=== PATIENT | male | born 1960 | race Caucasian/White ===

== ENCOUNTER 2018-03-14 15:10 | Emergency (ER) | payer SELFPAY ==
[~2018-03-14] VITALS: Ht 162.6 cm; Wt 96.8 kg
[2018-03-14 15:14] VITALS: BP 125/78
--- NOTE | 2018-03-14 15:15 | NUR ---
PT AMBULATES TO BED 2
--- NOTE | 2018-03-14 15:16 | NUR ---
REPORT GIVEN TO IVY SOTO
--- NOTE | 2018-03-14 15:20 | NUR ---
PATIENT PRESENTS TO ED WITH OPEN LACERATION TO RIGHT THUMB. PATIENT STATES HE CUT HIS HAND ON A PIECE OF GLASS. CAP REFILL ON RIGHT THUMB <3 SEC. PATIENT APPEARS TO HAVE SOME INK OVER CUT THAT HE REPORTS IS FOR CUTS AND WOUNDS. DENIES N/V/D; SKIN IS PINK/WARM/DRY; AAOX4 WITH EVEN AND STEADY GAIT; LUNGS CLEAR BL; HR EVEN AND REGULAR; PT DENIES ANY FEVER, CP, SOB, OR COUGH AT THIS TIME; PATIENT STATES PAIN OF 2/10 AT THIS TIME; VSS; PATIENT SITTING ON CHAIR. ER MD MADE AWARE OF PT STATUS.
--- NOTE | 2018-03-14 16:30 | NUR ---
Patient appears to be resting comfortably in bed. Vital Signs within normal limits. Respirations even and unlabored.
--- NOTE | 2018-03-14 16:40 | NUR ---
DR. SEAY AT BEDSIDE
[2018-03-14] MEDS ORDERED: cefTRIAXone 1,000 MG in LIDOCAINE 1% ***ER ONLY *** 2.1 ML IM ONE (16:45)
[2018-03-14] MEDS ORDERED: HYDROcodone/APAP 5/325 MG 1 TAB TAB PO ONE (16:45)
[2018-03-14] MEDS ORDERED: LIDOCAINE 1% 500 MG/50 ML VIAL INJ ONE (16:45)
[2018-03-14] MEDS ORDERED: NEOMYCIN/POLYMYXIN/BACITRACIN 0.9 GM/1 PKT TP ONE (16:45)
[2018-03-14] MEDS ORDERED: cefTRIAXone 1,000 MG VIAL ONE (16:55)
--- NOTE | 2018-03-14 17:50 | NUR ---
Patient appears to be resting comfortably in bed. Vital Signs within normal limits. Respirations even and unlabored.
--- NOTE | 2018-03-14 19:21 | NUR ---
Pt report given to [facility]. Transfer of care at this time.
--- NOTE | 2018-03-14 19:28 | NUR ---
Patient discharged with v/s stable. Written and verbal after care instructions given and explained. Patient alert, oriented and verbalized understanding of instructions. Ambulatory with steady gait. All questions addressed prior to discharge. ID band removed. Patient advised to follow up with PMD. Rx of KEFLEX 500 MG, MOTRIN 800 MG given. Patient educated on indication of medication including possible reaction and side effects. Opportunity to ask questions provided and answered.
[2018-03-14 19:29] VITALS: BP 142/83
== END 2018-03-14 19:28 | disposition home or self-care (01) ==
LOC: MED 15:10
DX: S61.011A Laceration without foreign body of right thumb without damage to nail, initial encounter (principal); W25.XXXA Contact with sharp glass, initial encounter; Y93.89 Activity, other specified; Y92.89 Other specified places as the place of occurrence of the external cause; Y99.8 Other external cause status
CPT/HCPCS: 12001; 73140; 90471; 90715; 96372; 99284; J0696; J2001